=== PATIENT | male | born 1955 | race Caucasian/White ===

== ENCOUNTER 2020-07-04 15:17 | Observation (INO) ==
[2020-07-04] MEDS ORDERED: DilTIAZem 50 MG/50 ML IV.SOLN IVC SCH (15:30)
[2020-07-04] MEDS ORDERED: *HR* Metoprolol 5 MG/5 ML VIAL IVP STA (15:50)
[2020-07-04] MEDS ORDERED: Naloxone 0.4 MG/ML INJ IVP PRN (16:37)
[2020-07-04] MEDS ORDERED: Perflutren Lipid Microsphere 1.3 ML in 0.9 % Sodium Chloride 8.7 ML IVP PRN (16:42)
[2020-07-04] MEDS ORDERED: Nitroglycerin 0.4 MG TAB.SUBL SL PRN (16:42)
[2020-07-05 04:32] LABS: Basophils # 0.1 K/mcL (0.0-0.2); Basophils % 0.9 %; Eosinophils # 0.3 K/mcL (0.0-0.6); Eosinophils % 4.6 %; Hematocrit 43.8 % (37.5-50.1); Immature Granulocytes % 0.2 % (0-4); Lymphocytes # 1.3 K/mcL (0.6-4.6); Lymphocytes % 23.5 %; Mean Corpuscular HGB Conc 34.2 g/dL (31.6-35.5); Mean Corpuscular Hemoglobin 33.1 pg (28.0-33.3); Mean Corpuscular Volume 96.7 fL (83.0-100.0); Mean Platelet Volume 9.2 fL (9.4-12.4); Monocytes # 0.6 K/mcL (0.0-1.3); Monocytes % 9.9 %; Neutrophils # 3.5 K/mcL (1.6-8.9); Platelet Count 207 K/mcL (140-400); Red Blood Count 4.53 M/mcL (4.19-5.50); Segmented Neutrophils % 60.9 %; White Blood Count 5.7 K/mcL (4.3-11.1)
[2020-07-05 04:51] LABS: Chol/HDL Ratio 3.3 (0-4.9)
[2020-07-05 04:52] LABS: BUN/Creatinine Ratio 15 (6-26); Blood Urea Nitrogen 12 mg/dL (8-23); Carbon Dioxide 27 mEq/L (23-29); Chloride 106 mEq/L (98-107); Glucose 89 mg/dL (70-105); Osmolality,Calculated 289 (280-300); Potassium 4.5 mEq/L (3.5-5.1); Sodium 140 mEq/L (136-145); eGFR For African Americans > 60 (> 60); eGFR For Non-African Americans > 60 (> 60)
[2020-07-05 05:05] LABS: Thyroid Stimulating Hormone 3.136 mcIU/mL (0.340-5.600)
[2020-07-05] MEDS ORDERED: Regadenoson 0.4 MG/5 ML SYRINGE IVP ONE (05:59)
[2020-07-05] MEDS ORDERED: Aspirin Enteric Coated 325 MG Tablet PO SCH (09:00)
[2020-07-05 09:57] LABS: Estimated Average Glucose 108 mg/dl
[2020-07-05 11:56] LABS: Estimated Average Glucose 108 mg/dl
[2020-07-05] MEDS ORDERED: *HR* Heparin 5,000 UNIT/ML VIAL IVP ONE (13:48)
[2020-07-05] MEDS ORDERED: *HR* Heparin 5,000 UNIT/ML VIAL IVP PRN ×2 (13:48)
[2020-07-05] MEDS ORDERED: Heparin 25,000UNIT/250ML 1/2NS 25,000 UNIT/250 ML IV.SOLN IVC SCH (14:00)
[2020-07-05] MEDS ORDERED: *HR* Heparin 5,000 UNIT/ML VIAL SQ SCH (14:00)
[2020-07-05] MEDS ORDERED: ISOVUE-370 200 ML INFUS..BTL ONE (14:02)
[2020-07-05] MEDS ORDERED: Nitroglycerin 1,000 MCG/10 ML VIAL IV ONE (14:02)
[2020-07-05] MEDS ORDERED: Heparin 1,000 UNITS/500 mL 500 ML ONE (14:02)
[2020-07-05] MEDS ORDERED: 0.9 % Sodium Chloride 2,000 ML ONE (14:02)
[2020-07-05] MEDS ORDERED: *HR* Heparin 10,000 UNIT/10 ML VIAL ONE (14:02)
[2020-07-05] MEDS ORDERED: *HR* Metoprolol 5 MG/5 ML VIAL IVP ONE (14:10)
[2020-07-05] MEDS ORDERED: *HR* Midazolam HCl 2 MG/2 ML VIAL ONE (14:52)
[2020-07-05] MEDS ORDERED: *HR* FentaNYL (PF) 100 MCG/2 ML VIAL ONE (14:52)
[2020-07-05 15:17] LABS: Hemoglobin 16.4 g/dL (12.9-16.9); Mean Corpuscular HGB Conc 34.2 g/dL (31.6-35.5); Mean Corpuscular Hemoglobin 32.9 pg (28.0-33.3); Mean Corpuscular Volume 96.4 fL (83.0-100.0); Mean Platelet Volume 9.3 fL (9.4-12.4); Platelet Count 228 K/mcL (140-400); Red Blood Count 4.98 M/mcL (4.19-5.50); Red Cell Distribution Width 13.1 % (11.5-14.5); White Blood Count 6.6 K/mcL (4.3-11.1)
[2020-07-05 15:26] LABS: Heparin anti-factor XA UFH < 0.04 IU/mL (0.30-0.70); INR 1.1; Prothrombin Time 12.3 Seconds (9.4-12.1)
[2020-07-05] MEDS: *HR* Rivaroxaban 10 MG TABLET PO SCH (18:12)
[2020-07-06] MEDS: Metoprolol XL (24 HR) Succ 50 MG TAB.ER.24H PO SCH ×4 (00:17→19:55)
[2020-07-06] MEDS ORDERED: *HR* Metoprolol 5 MG/5 ML VIAL IVP ONE (08:08)
[2020-07-06] MEDS: Aspirin Enteric Coated 81 MG Tablet PO SCH (08:10)
[2020-07-06] MEDS: Folic Acid 1 MG TABLET PO SCH (17:11)
[2020-07-06] MEDS: Thiamine (B-1) 100 MG TABLET PO SCH (17:11)
[2020-07-06] MEDS: *HR* Rivaroxaban 10 MG TABLET PO SCH (17:11)
[2020-07-07 08:00] VITALS: BP 120/84
[2020-07-07] MEDS: Metoprolol XL (24 HR) Succ 50 MG TAB.ER.24H PO SCH (08:26)
[2020-07-07] MEDS: Aspirin Enteric Coated 81 MG Tablet PO SCH (08:26)
[2020-07-07] MEDS: Folic Acid 1 MG TABLET PO SCH (08:26)
[2020-07-07] MEDS: Thiamine (B-1) 100 MG TABLET PO SCH (08:26)
== END 2020-07-07 11:52 | disposition home or self-care (01) ==
LOC: 3BNU 15:17 → EMEROOARM 15:17 → SUATTDRO 17:15 → 3BNU 17:30
PROVIDERS: ADMIT Internal Medicine; ATTEND Internal Medicine